=== PATIENT | male | born 1960 | race Caucasian/White ===

== ENCOUNTER 2017-05-16 16:38 | Emergency (ER) | payer OTHER ==
[~2017-05-16] VITALS: Ht 167.6 cm; Wt 106.6 kg
[~2017-05-16 16:38] MED LIST: CRUTCH1 EACH; CYMBALTA30 MG PO; GLUCOPHAGE500 MG PO; IBUPROFEN600 MG PO; KLONOPIN0.5 MG PO; NORCO 5-325 TA1 EACH PO; NORCO 7.5-3251 EACH PO
[2017-05-16] MEDS ORDERED: LOSARTAN POTASS50 MG PO (17:03)
[2017-05-16] MEDS ORDERED: SIMVASTATIN20 MG PO (17:03)
[2017-05-16] MEDS ORDERED: ALPRAZOLAM0.5 MG PO (17:04)
[2017-05-16] MEDS ORDERED: NORCO 5-325 TA1 EACH PO (17:38)
[2017-05-16] MEDS ORDERED: KNEE BRACE1 EACH MISC (17:38)
== END 2017-05-16 17:55 | disposition home or self-care (01) ==
LOC: ED 16:38
DX: M25.561 Pain in right knee (principal); F41.9 Anxiety disorder, unspecified; Z88.5 Allergy status to narcotic agent; Z79.899 Other long term (current) drug therapy; Z79.84 Long term (current) use of oral hypoglycemic drugs
CPT/HCPCS: 99283